=== PATIENT | male | born 1980 | race Caucasian/White ===

== ENCOUNTER 2021-11-09 21:20 | Emergency (ER) | payer OTHER ==
[~2021-11-09] VITALS: Ht 170.2 cm; Wt 65.8 kg
[2021-11-09 21:22] VITALS: BP 141/95
--- NOTE | 2021-11-09 21:39 | NUR ---
40 Y/O M BIBA. PER EMS PT PASSED OUT, IT WAS A UNWITNESSED FALL AND DOES NOT REMEBER WHAT HAPPENED. PT HAS A HISTORY OF ALCHOHOL ABUSE +20 YEARS AND WAS DRINKING TODAY. PT STATED THAT HE HAS BEEN THROWING UP BLOOD ON AND OFF FOR 3 WEEKS. PT DID NOT SEEN A PHP. NON COMPLIENT WITH MEDICATIONS. NKA PMH: LIVER CIRRHOSIS, HTN
[2021-11-09] MEDS ORDERED: NACL 0.9% 1,000 ML IV SCH (21:45)
[2021-11-09] MEDS ORDERED: ONDANSETRON 4 MG/2 ML VIAL IVP ONE (21:55)
[2021-11-09] MEDS ORDERED: PANTOPRAZOLE 40 MG INJ VIAL IVP ONE (21:55)
--- NOTE | 2021-11-09 21:58 | NUR ---
LAB AT BEDSIDE.
--- NOTE | 2021-11-09 22:01 | NUR ---
PT TO CT SCAN.
--- NOTE | 2021-11-09 22:10 | NUR ---
PT BACK FROM CT.
[2021-11-09 22:14] LABS: BASOPHILS % (AUTO) 0.4 % (0.0-2.0); EOSINOPHILS # (AUTO) 0.2 K/uL (0-0.4); EOSINOPHILS % (AUTO) 3.2 % (0.0-4.0); HEMATOCRIT 47.6 % (36-52); HEMOGLOBIN 16.2 g/dL (12.0-18.0); LYMPHOCYTES # (AUTO) 2.6 K/uL (2.0-11.5); LYMPHOCYTES % (AUTO) 39.8 % (20.5-51.1); MEAN CORPUSCULAR HEMOGLOBIN 31 pg (27-31); MEAN CORPUSCULAR HGB CONC 34 g/dL (33-37); MEAN CORPUSCULAR VOLUME 90.4 fL (80-94); MONOCYTES # (AUTO) 0.7 K/uL (0.8-1.0); MONOCYTES % (AUTO) 10.3 % (1.7-9.3); NEUTROPHILS % (AUTO) 46.3 % (42.2-75.2); PLATELET COUNT (AUTO) 280 K/uL (140-450); RED BLOOD CELL COUNT(AUTO) 5.26 MIL/uL (4.20-6.10); RED CELL DISTRIBUTION WIDTH 13.7 % (11.6-13.7); WHITE BLOOD COUNT (AUTO) 6.6 K/uL (4.8-10.8)
[2021-11-09 22:21] LABS: APPEARANCE,URINE CLEAR (CLEAR); BILIRUBIN,URINE NEGATIVE (NEGATIVE); BLOOD, URINE TRACE-I (NEGATIVE); COLOR,URINE YELLOW (YELLOW); LEUKOCYTE ESTERASE ,URINE NEGATIVE (NEGATIVE); NITRITE, URINE NEGATIVE (NEGATIVE); UGLUCOSE NEGATIVE (NEGATIVE)
[2021-11-09 22:26] LABS: PROTHROMBIN TIME 10.9 secs (10.8-13.4)
[2021-11-09] MEDS ORDERED: NACL 0.9% 1,000 ML IV ONE (23:15)
[2021-11-09] MEDS ORDERED: LORazepam 1 MG TAB PO ONE (23:15)
[2021-11-10] MEDS ORDERED: LORazepam 1 MG TAB PO ONE (00:20)
[2021-11-10 01:01] LABS: ANION GAP 20.3 (8-16); ASPARTATE AMINOTRANSFERASE 128 U/L (15-37); CARBON DIOXIDE 24.2 mmol/L (21-32); CHLORIDE 108 mmol/L (98-107); CREATININE 1.2 mg/dL (0.6-1.3); GFR ARICAN-AMERICAN 86 mL/min (>90); GLUCOSE 116 mg/dL (74-106); POTASSIUM 3.5 mmol/L (3.5-5.1); SODIUM SERUM 149 mmol/L (136-145); TOTAL BILIRUBIN 0.4 mg/dL (0.0-1.0); UREA NITROGEN, BLOOD 4 mg/dL (7-18)
[2021-11-10 01:35] LABS: SALICYLATE < 2.8 mg/dL (2.8-20.0)
[2021-11-10 01:52] LABS: ACETAMINOPHEN < 0.5 ug/ml (10-30)
[2021-11-10] MEDS ORDERED: NACL 0.9% 1,000 ML IV ONE (02:00)
[2021-11-10 03:00] LABS: RBC,URINE 11-20 (MOD) /HPF (0-5)
[2021-11-10 04:01] VITALS: BP 116/75
--- NOTE | 2021-11-10 04:01 | NUR ---
Patient discharged with v/s stable. Written and verbal after care instructions given and explained. Patient verbalized understanding. Ambulatory with steady gait. All questions addressed prior to discharge. Advised to follow up with PMD.
--- NOTE | 2021-11-10 04:06 | NUR ---
The patient's care was reviewed and supervised by Milvia Pettit RN, RN.
== END 2021-11-10 03:59 | disposition home or self-care (01) ==
LOC: MED 21:20 → EDBD 21:20 → MED 11-10 03:59
DX: R55 Syncope and collapse (principal); R42 Dizziness and giddiness; R11.0 Nausea; I10 Essential (primary) hypertension; Z98.890 Other specified postprocedural states; W19.XXXA Unspecified fall, initial encounter; Y93.89 Activity, other specified; Y92.89 Other specified places as the place of occurrence of the external cause; Y99.8 Other external cause status
CPT/HCPCS: 36415; 70450; 71045; 80053; 81001; 82550; 83605; 84484; 85025; 85610; 85730; 86886; 86900; 86901; 87040; 87086; 93005; 96361; 96374; 96375; 99285; C9113; G0480; G0482; J2405; J7030

== ENCOUNTER 2022-09-17 12:06 | Emergency (ER) | payer OTHER ==
[~2022-09-17] VITALS: Ht 167.6 cm; Wt 59.9 kg
[2022-09-17 12:32] VITALS: BP 117/84; PULSE 75; RESP 16; TEMP 98.2; O2SAT 96
[2022-09-17 13:16] VITALS: O2SAT 96
== END 2022-09-17 13:17 | disposition home or self-care (01) ==
LOC: MED 12:06
DX: S01.81XD Laceration without foreign body of other part of head, subsequent encounter (principal); Z48.02 Encounter for removal of sutures; X58.XXXD Exposure to other specified factors, subsequent encounter
CPT/HCPCS: 99281